=== PATIENT | male | born 1955 | race Caucasian/White ===

== ENCOUNTER → 2016-03-29 | Outpatient (CLI) | payer BC, OTHER ==
[~2016-03-29] MED LIST: ASPIR-LOW81 M1 PO; CARAFATE1 GM PO; PROTONIX20 MG PO; ZOCOR5 MG PO
== END | disposition home or self-care (01) ==
LOC: RES 10:26
DX: I42.0 Dilated cardiomyopathy (principal)
CPT/HCPCS: 94060; 94726; 94729